=== PATIENT | male | born 1990 | race Caucasian/White ===

== ENCOUNTER 2019-10-29 13:22 | Emergency (ER) | payer OTHER ==
[~2019-10-29] VITALS: Ht 193 cm; Wt 110.0 kg
[2019-10-29 13:57] LABS: BASOPHILS # (AUTO) 0.1 X10'3 (0-0.2); BASOPHILS % (AUTO) 1.1 % (0-1); EOSINOPHILS # (AUTO) 0.3 X10'3 (0-0.9); EOSINOPHILS % (AUTO) 3.5 % (0-6); HEMOGLOBIN 15.9 g/dl (14.0-17.9); LYMPHOCYTES # (AUTO) 1.8 X10'3 (1.1-4.8); LYMPHOCYTES % (AUTO) 25.3 % (21-51); MEAN CORPUSCULAR HEMOGLOBIN 29.9 PG (27.0-31.0); MEAN CORPUSCULAR HGB CONC 33.9 g/dL (33.0-36.5); MEAN CORPUSCULAR VOLUME 88.2 FL (78-98); MEAN PLATELET VOLUME 9.3 FL (7.4-10.4); MONOCYTES # (AUTO) 0.5 X10'3 (0-0.9); MONOCYTES % (AUTO) 7.1 % (2-12); NEUTROPHILS # (AUTO) 4.6 X10'3 (1.8-7.7); PLATELET COUNT 230 X10'3 (140-440); RED BLOOD COUNT 5.33 X10'6 (4.70-6.10); WHITE BLOOD COUNT 7.3 X10'3 (4.5-11.0)
[2019-10-29 14:08] LABS: ALANINE AMINOTRANSFERASE 32 U/L (12-78); ALBUMIN 4.3 G/DL (3.4-5.0); ALBUMIN/GLOBULIN RATIO 1.1 (1.1-1.5); ALKALINE PHOSPHATASE 59 IU/L (46-116); ANION GAP 12 (8-16); ASPARTATE AMINO TRANSFERASE 21 U/L (10-37); BILIRUBIN,TOTAL 0.3 MG/DL (0.1-1.0); BLOOD UREA NITROGEN 16 MG/DL (7-18); CALCIUM 9.3 MG/DL (8.5-10.1); CHLORIDE 104 MMOL/L (99-107); CREATININE 1.07 MG/DL (0.60-1.10); GLUCOSE 100 MG/DL (70-104); LIPASE 236 U/L (73-393); POTASSIUM 3.8 MMOL/L (3.5-5.1); SODIUM 141 MMOL/L (135-145); TOTAL CARBON DIOXIDE 25.1 MMOL/L (24-32); TOTAL PROTEIN 8.2 G/DL (6.4-8.2); eGFR 83 ML/MIN
[2019-10-29 14:32] LABS: COLOR,URINE YELLOW (Yellow); GLUCOSE, URINE NEGATIVE (Neg); KETONES,URINE NEGATIVE (Neg); LEUKOCYTE ESTERASE ,URINE NEGATIVE (Neg); NITRITES, URINE NEGATIVE (Neg); OCCULT BLOOD,URINE NEGATIVE (Neg); PROTEIN,URINE NEGATIVE (Neg); UROBILINOGEN,URINE 0.2 E.U/dL (0.2-1.0)
[2019-10-29] MEDS ORDERED: midazolam 2 mg/2 ml injection ONE (14:36)
[2019-10-29 14:37] LABS: CLARITY,URINE SLIGHTLY CLOUDY (Clear); MUCUS STRANDS NONE SEEN /LPF (Neg); RBC,URINE 0-2 /HPF (0-2); SQUAMOUS EPITHELIAL CELL,UR NONE SEEN /LPF (FEW); UA COLLECTION TYPE CLN CATCH MIDSTREAM
[2019-10-29] MEDS ORDERED: fentaNYL /PF 50mcg/ml 5ml ampule ONE (14:37)
[2019-10-29 14:38] LABS: BACTERIA,URINE FEW /HPF (Neg)
[2019-10-29] MEDS ORDERED: LIDOcaine 2% 5ml jelly ONE (14:39)
[2019-10-29] MEDS ORDERED: HYDROcodone/acetaminophen 10/325mg tab PO PRN (14:40)
[2019-10-29] MEDS ORDERED: ringers solution, lacted 1,000 ML IV SCH (14:44)
[2019-10-29] MEDS ORDERED: hydrALAZINE 20mg/ml inj. IV PRN (14:45)
[2019-10-29] MEDS ORDERED: morphine 2 MG/ML inj. syringe IV PRN (14:45)
[2019-10-29] MEDS ORDERED: acetaminophen 1,000mg/100ml IV 100 ML IV PRN (14:45)
[2019-10-29] MEDS ORDERED: meperidine/PF 25mg/ml syringe IV PRN ×3 (14:45)
[2019-10-29] MEDS ORDERED: ketorolac trometh. 30mg/ml inj. IV ONE (14:45)
[2019-10-29] MEDS ORDERED: ondansetron/PF 4mg/2ml inj IV PRN (14:45)
[2019-10-29] MEDS ORDERED: labetalol 20mg/4ml (5mg/ml) syringe IV PRN (14:45)
[2019-10-29] MEDS ORDERED: morphine 4 MG/ML inj SYRINge IV PRN (14:45)
[2019-10-29] MEDS ORDERED: proCHLORperazine 10 MG/2 ml inj IV PRN (14:45)
[2019-10-29] MEDS ORDERED: sevoflurane 250ml liquid IH ONE (14:47)
--- NOTE | 2019-10-29 14:51 | NUR ---
REPORT GIVEN TO LAMP ASSEMBLER AND DR LEROY. PT TAKEN STRAIGHT TO OR
[2019-10-29] MEDS ORDERED: famotidine/PF 10 mg/ml inj IV ONE (14:55)
[2019-10-29] MEDS ORDERED: LIDOcaine 2% (20mg/ml) 5ml vial ONE (15:14)
[2019-10-29] MEDS ORDERED: rocuronium 10mg/ml inj IV ONE (15:14)
[2019-10-29] MEDS ORDERED: ceFOXitin 1000 MG inj ONE ×2 (15:14)
[2019-10-29] MEDS ORDERED: ondansetron/PF 4mg/2ml inj ONE (15:14)
[2019-10-29] MEDS ORDERED: metoclopramide 5 mg/ml inj ONE (15:14)
[2019-10-29] MEDS ORDERED: propofol inj 20 ML IV ONE (15:14)
[2019-10-29] MEDS ORDERED: neostigmine methylsulfate 1 MG/ML 10ml vial ONE (15:14)
[2019-10-29] MEDS ORDERED: glycopyrrolate 0.2mg/ml inj ONE (15:14)
[2019-10-29] MEDS ORDERED: dexamethasone sod phosphate 4mg/ml inj. ONE (15:14)
[2019-10-29] MEDS ORDERED: BUPIVAcaine/PF 2.5 mg/ml (0.25%) 30ml vial ONE (15:15)
[2019-10-29] MEDS ORDERED: morphine 10mg/ml inj. ONE (15:50)
--- NOTE | 2019-10-29 16:05 | NUR ---
Received from OR via JOHNNY , accompanied by Anesthesiologist GENESIS and report given by Anesthesiolgist. PATIENT WITH 20G PIV IN RIGHT UE RUNNING LR AT 100. DENIES PAIN. ONE 3ABDOMINAL LAP SITES THAT ARE CDI. VSS. Addendum: 10/29/19 at 1611 by Jose Ramon Alcaraz RN, RN Amended: Links added.
[2019-10-29 16:06] VITALS: BP 137/81
[2019-10-29 16:16] VITALS: BP 149/92
[2019-10-29 16:26] VITALS: BP 149/83
[2019-10-29 16:36] VITALS: BP 132/81
[2019-10-29 16:46] VITALS: BP 129/80
--- NOTE | 2019-10-29 16:56 | NUR ---
PATIENT AND FAMILY AND THEY HAVE VERBALIZED UNDERSTANDING, OPPORTUNITY TO ASK QUESTIONS GIVEN AND PATIENT COMFORTABLE WITH DC. IV TAKEN OUT WITHOUT COMPLICATION. PATIENT HAS MET ALL DC CRITERIA FOR DC HOME. I HAVE REVIEWED D/C INSTRUCTIONS WITH OUT VIA WHEELCHAIR WHERE PATIENT WAS TAKEN HOME WITH ALL BELONGINGS. FAMILY GAVE PATIENT TRANSPORT HOME. NO DRAINAGE FROM LAP SITES TO ABDOMEN. VSS. Addendum: 10/29/19 at 1702 by Jose Ramon Alcaraz RN, RN Amended: Links added.
== END 2019-10-29 16:55 | disposition home or self-care (01) ==
LOC: ER 13:23
DX: K35.80 Unspecified acute appendicitis (principal)
CPT/HCPCS: 36415; 80053; 81001; 83690; 85025; 87088; 99285; J0694; J1100; J2001; J2250; J2270; J2405; J2704; J2710; J2765; J3010; J3490; J7120; A4215; A4618; A7000